=== PATIENT | female | born 1995 | race Caucasian/White ===

== ENCOUNTER 2017-08-24 07:15 | Inpatient (IN) | payer OTHER ==
[2017-08-24] MEDS: LACTATED RINGER'S 1000 ML IV (09:31)
[2017-08-24 09:50] LABS: HEMATOCRIT 30.2 % (36.0-47.0); HEMOGLOBIN 9.3 g/dl (12.0-16.0); MEAN CORPUSCULAR HEMOGLOBIN 25.8 pg (27.0-33.0); MEAN CORPUSCULAR HGB CONC 30.8 g/dl (32.0-36.5); MEAN CORPUSCULAR VOLUME 83.7 fl (80.0-96.0); PLATELET COUNT, AUTOMATED 200 10^3/uL (150-450); RED BLOOD COUNT 3.61 10^6/uL (4.00-5.40); RED CELL DISTRIBUTION WIDTH 14.9 % (11.5-14.5); WHITE BLOOD COUNT 11.5 10^3/uL (4.0-10.0)
[2017-08-24] MEDS ORDERED: miSOPROStol 25 MCG 1/4 TAB (S0191) As Ordered (09:53)
[2017-08-24] MEDS: miSOPROStol 25 MCG 1/4 TAB (S0191) PV (09:57)
[2017-08-24] MEDS ORDERED: BUTORPHANOL 2 MG/ML INJ (J0595) IV (10:30)
[2017-08-24] MEDS: LR 1,000 ML IV ×2 (10:33→17:18)
[2017-08-24 10:36] LABS: AMPHETAMINES URINE REFLEX NEGATIVE (NEGATIVE); BARBITURATES URINE REFLEX NEGATIVE (NEGATIVE); BENZODIAZEPINES URINE REFLEX NEGATIVE (NEGATIVE); CANNABINOIDS URINE REFLEX NEGATIVE (NEGATIVE); COCAINE METABOLITE URINE REFLE NEGATIVE (NEGATIVE); METHADONE URINE REFLEX NEGATIVE (NEGATIVE); OPIATES URINE REFLEX NEGATIVE (NEGATIVE); PHENCYCLIDINE URINE REFLEX NEGATIVE (NEGATIVE)
[2017-08-24] MEDS: miSOPROStol 25 MCG 1/4 TAB (S0191) PO (17:15)
[2017-08-24] MEDS ORDERED: FENTANYL 2MCG/ML ROPIVACAINE 0.2% IN 0.9% NACL 200ML IVBAG As Ordered (22:29)
[2017-08-25] MEDS: OXYTOCIN DRIP 30 UNITS in APPROPRIATE DILUENT 1 EA IV ×2 (00:05→13:23)
[2017-08-25] MEDS ORDERED: diphenhydrAMINE INJ 50MG/ML VIAL (J1200) IV (11:00)
[2017-08-25] MEDS ORDERED: LACTATED RINGER'S 1000 ML IV (11:00)
[2017-08-25] MEDS ORDERED: FENTANYL/ROPIVACAINE/NACL BAG 200 ML EPIDURAL (11:00)
[2017-08-25] MEDS ORDERED: ePHEDrine SULFATE 25 MG/5 ML(5MG/ML) SYRINGE IV (11:00)
[2017-08-25] MEDS ORDERED: EPIDURAL COMMENT XX (11:00)
[2017-08-25] MEDS ORDERED: REFRIGERATOR IV KEYS XX (11:00)
[2017-08-25] MEDS ORDERED: EPIDURAL/PCA KEYS XX (11:00)
[2017-08-25] MEDS ORDERED: NALOXONE INJ 0.4 MG/1 ML VIAL (J2310) IV (11:00)
[2017-08-25] MEDS: ONDANSETRON 4MG/2ML VIAL (J2405) IV (11:07)
[2017-08-25 12:05] LABS: CORD GAS ABE A -3.5; CORD GAS ABE V -2.6; CORD GAS HCO3 V 23.5 MEQ/L; CORD GAS O2 SAT A 20.2 %; CORD GAS O2 SAT V 59.2 %; CORD GAS PH A 7.245 UNITS; CORD GAS PH V 7.335 UNITS; CORD GAS PO2 A 13.5 mmHg; CORD GAS PO2 V 25.6 mmHg; CORD GAS SBC A 19.7 MEQ/L; CORD GAS SBC V 21.3 MEQ/L; CORD GAS TCO2 A 26.8 MEQ/L; CORD GAS TCO2 V 24.8 MEQ/L
[2017-08-25] MEDS ORDERED: ONDANSETRON 4MG/2ML VIAL (J2405) IV (13:30)
[2017-08-25] MEDS ORDERED: MOM 30ML SUSPENSION UDC PO (13:30)
[2017-08-25] MEDS ORDERED: FAMOTIDINE 20 MG TAB PO (13:30)
[2017-08-25] MEDS: miSOPROStol 200 MCG TAB (S0191) PR (13:30)
[2017-08-25] MEDS ORDERED: PROMETHAZINE 25 MG TAB PO (13:30)
[2017-08-25] MEDS: IBUPROFEN 800 MG TAB PO ×2 (15:05→23:27)
[2017-08-25 20:12] LABS: HEMATOCRIT 27.2 % (36.0-47.0); HEMOGLOBIN 8.4 g/dl (12.0-16.0); MEAN CORPUSCULAR HEMOGLOBIN 25.7 pg (27.0-33.0); MEAN CORPUSCULAR HGB CONC 30.9 g/dl (32.0-36.5); MEAN CORPUSCULAR VOLUME 83.2 fl (80.0-96.0); PLATELET COUNT, AUTOMATED 196 10^3/uL (150-450); RED BLOOD COUNT 3.27 10^6/uL (4.00-5.40); RED CELL DISTRIBUTION WIDTH 15.4 % (11.5-14.5); WHITE BLOOD COUNT 21.2 10^3/uL (4.0-10.0)
[2017-08-25] MEDS: DIBUCAINE 1% OINTMENT 30GM TOP (21:40)
[2017-08-25] MEDS: ACETAMINOPHEN 500 MG TAB PO (21:40)
[2017-08-25] MEDS: DOCUSATE SODIUM 100 MG CAP PO (21:40)
[2017-08-26] MEDS: DOCUSATE SODIUM 100 MG CAP PO ×2 (08:58→20:02)
[2017-08-26] MEDS: IBUPROFEN 800 MG TAB PO ×2 (08:58→20:02)
[2017-08-26] MEDS: PRENATAL VITAMINS CHEWABLE TABLET PO (08:58)
[2017-08-26 09:36] LABS: HEMATOCRIT 25.1 % (36.0-47.0); HEMOGLOBIN 7.8 g/dl (12.0-16.0); MEAN CORPUSCULAR HEMOGLOBIN 26.1 pg (27.0-33.0); MEAN CORPUSCULAR HGB CONC 31.1 g/dl (32.0-36.5); MEAN CORPUSCULAR VOLUME 83.9 fl (80.0-96.0); PLATELET COUNT, AUTOMATED 166 10^3/uL (150-450); RED BLOOD COUNT 2.99 10^6/uL (4.00-5.40); RED CELL DISTRIBUTION WIDTH 15.4 % (11.5-14.5); WHITE BLOOD COUNT 15.7 10^3/uL (4.0-10.0)
[2017-08-26] MEDS: ACETAMINOPHEN 500 MG TAB PO (16:07)
[2017-08-26] MEDS: DIBUCAINE 1% OINTMENT 30GM TOP (20:15)
[2017-08-26] MEDS: ANUSOL HC CREAM 30GM TOP (20:16)
[2017-08-27] MEDS: ACETAMINOPHEN 500 MG TAB PO (00:16)
[2017-08-27] MEDS: PRENATAL VITAMINS CHEWABLE TABLET PO (08:29)
[2017-08-27] MEDS: DOCUSATE SODIUM 100 MG CAP PO (08:29)
== END 2017-08-27 13:00 | disposition home or self-care (01) | DRG 775 ==
LOC: M LDI 07:15 → M OBS 08-25 15:36
PROVIDERS: Obstetrics & Gynecology
PROC: 10E0XZZ Delivery of Products of Conception, External Approach (ICD-10-PCS; principal; 2017-08-24)
PROC: 0DQR0ZZ Repair Anal Sphincter, Open Approach (ICD-10-PCS; 2017-08-24)
PROC: 3E0P7VZ Introduction of Hormone into Female Reproductive, Via Natural or Artificial Opening (ICD-10-PCS; 2017-08-24)
PROC: 0HQ9XZZ Repair Perineum Skin, External Approach (ICD-10-PCS; 2017-08-24)
DX: O48.0 Post-term pregnancy (principal); O70.20 Third degree perineal laceration during delivery, unspecified; Z37.0 Single live birth; Z3A.41 41 weeks gestation of pregnancy; E66.9 Obesity, unspecified; Z68.36 Body mass index [BMI] 36.0-36.9, adult; O99.214 Obesity complicating childbirth; Z88.1 Allergy status to other antibiotic agents; Z91.040 Latex allergy status; O69.82X0 Labor and delivery complicated by other cord entanglement, without compression, not applicable or unspecified; O36.63X0 Maternal care for excessive fetal growth, third trimester, not applicable or unspecified; O75.89 Other specified complications of labor and delivery; O70.0 First degree perineal laceration during delivery

== ENCOUNTER 2017-10-08 14:21 | Emergency (ER) | payer OTHER | END 2017-10-08 17:46 | disposition home or self-care (01) | LOC: M ED 14:21 | DX: F33.9 Major depressive disorder, recurrent, unspecified (principal); Z88.0 Allergy status to penicillin; Z91.040 Latex allergy status | CPT/HCPCS: 99284 ==

== ENCOUNTER 2018-09-03 13:11 | Outpatient (CLI) | payer OTHER ==
[2018-09-03] VITALS (8 sets, daily range): BP systolic 90–113; BP diastolic 51–70
[~2018-09-03] VITALS: Ht 165.1 cm; Wt 121.0 kg
[~2018-09-03 13:11] MED LIST: COLA100C5 PO; IBUP-1114 PO; MAPA500T2 PO; PEPC1TAB5 PO; PRENTAB9 PO; VITA100067 PO
[2018-09-03] MEDS ORDERED: LACTATED RINGER'S 1000 ML IV ONE (15:15)
--- NOTE | 2018-09-03 18:02 | REP ---
Clinical: Polyhydramnios for well being. Comparison: None available . Findings: Examination demonstrates a single live advanced in cephalic presentation. motion is identified by technologist. Placenta is noted right lateral and grade I without evidence for placenta previa or abruption. Amniotic fluid volume is elevated and consistent with given history of polyhydramnios. Cervix measures 4.0 cm in length and appears closed. No evidence for nuchal cord. Gestational age by LMP 35 weeks 4 days with ALVARO 10/04/2018 . Gestational age by current measurements 38 weeks 4 days with ALVARO 09/13/2018 . FHR equals 153 beats per minute. BPD 9.7 cm 39 weeks 5 days HC 35.0 cm 40 weeks 5 days AC 37.0 cm 40 weeks 6 days FL 7.0 cm 36 weeks 1 day HL 6.2 cm 35 weeks 6 days HC/AC ratio 0.95 Estimated weight 3887 grams ( greater than 97th percentile based on age by LMP ). Biophysical profile score: 8 Amniotic fluid index: 33.1 cm (7.8 - 24.9) Umbilical cord SD ratio: 2.24 (2.00 - 3.00). Impression: Single live advanced gestation in cephalic presentation. Biophysical profile score is normal. Polyhydramnios noted (ARI = 33.1) weight is greater than 97 percentile based on age by LMP Electronically Signed by Henry Martinez MD 09/03/2018 05:53 P
[2018-09-04] VITALS (8 sets, daily range): BP systolic 88–174; BP diastolic 50–110
[2018-09-04] MEDS: LR 1,000 ML IV SCH ×2 (03:47→05:54)
== END 2018-09-04 07:55 | disposition home or self-care (01) ==
LOC: M LDO 13:11
PROVIDERS: ATTEND Obstetrics & Gynecology
DX: O40.3XX0 Polyhydramnios, third trimester, not applicable or unspecified (principal); Z3A.35 35 weeks gestation of pregnancy
CPT/HCPCS: 59025; 76811; 76819; 76820; 87081; 96360; 96361; G0378; G0463

== ENCOUNTER 2018-09-07 11:11 | Inpatient (IN) | payer OTHER ==
[~2018-09-07] VITALS: Ht 165.1 cm; Wt 121.0 kg
[2018-09-07] VITALS (13 sets, daily range): BP systolic 89–134; BP diastolic 49–69
[2018-09-07] MEDS: PRENATAL VITAMINS CHEWABLE TABLET PO SCH (09:00)
[~2018-09-07 11:11] MED LIST changes: -MORPHINE 10 MG/ML 1ML VIAL (J2270) As Ordered ONE
[2018-09-07] MEDS ORDERED: LACTATED RINGER'S 1000 ML IV STA (11:39)
--- NOTE | 2018-09-07 12:07 | HPEPDOC ---
Obstetrical History & Physical General Date of Admission History of Present Illness 23 yo at 36+1 weeks by 6+5 week US, and 37+4 weeks by 17+6 week US (10 day difference from 6+5 week US, with guidelines recommending changing due date if ALVARO >10 day difference) presented to L&D with the complaint of regular, painful contractions. She denies any leakage of fluid. She endorses intermittent spotting. She endorses movement. complicated by polyhydramnios, lack of care, concern for macrosomia, anxiety, and obesity. She has had limited care due to a lack of transportation. Chief Complaint: Contractions, pre-term Information Provided By: Patient Age: 23 : 4 Term: 1 Pre-term: 0 Abortions: 2 Livin Care Care: Limited Care Dating Final EDC: Oct 04, 2018 (6+5 week US set ALVARO of [id number]) Final EDC for Daily Update: Oct 04, 2018 Final EDC by: 1st trimester (US) Antepartum Course Diagnos(e)s Concern for macrosomia polyhydramnios obesity anxiety limited care Past Medical History Past Obstetrical History : Past Obstetrical History: Multigravida Type of Delivery: Spontaneous Vaginal Del. (Pelvis proven to 9lbs 14oz) OPERATING ROOM RN History: No pertinent history Past Medical History Medical History Obesity anxiety asthma Surgical History: Denies/None Family History Significant Family History: No pertinent family hx Family History Noncontributory Social History Marital Status: Family situation: Spouse/partner home Psychosocial History: Anxiety, Depression * Smoker: non-smoker Alcohol: Denies Drugs: denies Imunizations Tdap status: needs Influenza Status: current Allergies Coded Allergies: Amoxicillin (Verified Allergy, Severe, 08/24/17) REDDNESS AND SWELLING OF FACE Latex (Verified Allergy, Severe, 08/24/17) RASH Medications Scheduled Multivitamins/ ( 27-0.8 mg) 1 Tab Tab, 1 TAB PO DAILY Physical Examination Physical Examination GENERAL: Alert and oriented times three. ABDOMEN: Gravid and non-tender to touch. FETUS: Is vertex (VTX) by sterile vaginal examination (SVE) EXTREMITIES: No edema. Laboratory Data Urine Culture: No Growth Pertinent Laboratoy Data Blood Type: O+ RBC Antibody Screen: Negative HIV: Negative Hepatitis B: Negative Hepatitis C: Unknown Rapid Plasma Reagin: Nonreactive Rubella: Immune Varicella: Immune Chlamydia/Gonorrhea: Negative Group B Streptococcus: Unknown Quad Screen Test: Unknown Cystic Fibrosis: Unknown Glucose Tolerance Test: 133 Anatomy Ultrasound Placenta Location: Anterior (Concern for macrosomia and polyhydramnios on last US) Normal Anatomy: Yes Placenta Previa: No Other Ultrasounds 03Sep2018 --> polyhydramnios with ARI 33cm, and concern for macrosomia with EFW in 97th percentile Steroid Therapy Steroid Therapy: No Vaginal Examination Dilation: 5 cm Effacement: 80% Station: -1 Cervical Consistency: Soft Cervical Position: Anterior Presentation: Cephalic presentation Position: Vertex (occiput) Assessment Heart Rate (FHR): 150 Variability: Moderate Accelerations: Positive Decelerations: Variable Tocometer Contractions: Yes Frequency: irregular Duration: greater than 60 seconds Strength: palpated as moderate Assessment/Plan Assessment 23 yo at 36+1 weeks gestation by 6+5 week US presented in active labor. Plan There has been some confusion regarding her due date, but her 6+5 week scan is the most accurate. She had a 10 day difference US at 17+6 weeks, and guidelines report NOT changing the due date unless the difference is GREATER than 10 days at that gestational age. She had an US at 22+6 weeks which resulted in a 12 day difference from her due date. At this gestational age, it is NOT recommended to change the due date unless there is a 14 day difference from her prior due date. She had a GBS swab performed at her [facility] L&D visit on 03Sep2018 which was negative. She will NOT require GBS prophylaxis, even though she is . Will expectantly manage labor at this time. Apply IV fluids. Epidural when and if patient desires. Anticipate . DO GHAZALA Quezada CHRISTOPHER J. DO Sep 07, 2018 12:07
[2018-09-07] MEDS ORDERED: MORPHINE 10 MG/ML 1ML VIAL (J2270) IV ONE ×2 (12:30→13:00)
[2018-09-07] MEDS ORDERED: OXYTOCIN DRIP 30 UNITS in APPROPRIATE DILUENT 1 EA IV SCH (12:46)
[2018-09-07] MEDS ORDERED: ONDANSETRON 4MG/2ML VIAL (J2405) IV PRN (13:00)
[2018-09-07] MEDS ORDERED: ACETAMINOPHEN 500 MG TAB PO PRN (13:00)
[2018-09-07] MEDS ORDERED: LIDOCAINE 1% MDV 20ML VIAL SC ONE (13:00)
[2018-09-07] MEDS ORDERED: DOCUSATE SODIUM 100 MG CAP PO PRN ×2 (13:00→16:30)
[2018-09-07] MEDS ORDERED: DIBUCAINE 1% OINTMENT 30GM TOP PRN (13:00)
[2018-09-07] MEDS ORDERED: IBUPROFEN 800 MG TAB PO PRN (13:00)
[2018-09-07] MEDS ORDERED: RHOGAM 300 MCG (1500 IU) INJ (J2790) IM SCH ×2 (13:00→16:30)
[2018-09-07] MEDS ORDERED: MEASLES,MUMPS,RUBELLA VACCINE INJ (MMR-II) (90707) SC SCH (13:00)
[2018-09-07 13:20] LABS: CORD GAS ABE A -5.4; CORD GAS HCO3 A 20.3 MEQ/L; CORD GAS O2 SAT A 69.2 %; CORD GAS PCO2 A 40.3 mmHg; CORD GAS PH A 7.32 UNITS; CORD GAS PO2 A 30.8 mmHg; CORD GAS SBC A 19.4 MEQ/L; CORD GAS TCO2 A 21.5 MEQ/L
[2018-09-07 13:22] LABS: CORD GAS ABE V -2.6; CORD GAS HCO3 V 23.6 MEQ/L; CORD GAS O2 SAT V 65.9 %; CORD GAS PH V 7.328 UNITS; CORD GAS PO2 V 28.4 mmHg; CORD GAS SBC V 21.5 MEQ/L
[2018-09-07 15:25] LABS: ALT/SGPT 16 U/L (12-78); BILIRUBIN,TOTAL 0.4 MG/DL (0.2-1.0); CREATININE FOR GFR 0.39 MG/DL (0.55-1.30); GLOMERULAR FILTRATION RATE > 60.0 (>60); LDH LACTATE DEHYDROGENASE 317 U/L (84-246); URIC ACID 2.4 MG/DL (2.6-6.0)
[2018-09-07 15:35] LABS: BASO % 0.1 % (0.0-1.0); EOS % 0.3 % (0.0-3.0); HEMATOCRIT 33.5 % (36.0-47.0); MEAN CORPUSCULAR HEMOGLOBIN 25.1 pg (27.0-33.0); MEAN CORPUSCULAR HGB CONC 29.9 g/dl (32.0-36.5); MEAN CORPUSCULAR VOLUME 84.2 fl (80.0-96.0); MONO # 1.4 10^3/uL (0.0-0.8); MONO % 8.5 % (0.0-5.0); NEUTROPHILS # 13.5 10^3/uL (1.8-7.7); NEUTROPHILS % 84.3 % (36.0-66.0); PLATELET COUNT, AUTOMATED 154 10^3/uL (150-450); RED BLOOD COUNT 3.98 10^6/uL (4.00-5.40)
[2018-09-07] MEDS ORDERED: DILUENT IV SCH (16:20)
[2018-09-07] MEDS ORDERED: OXYTOCIN DRIP IV SCH (16:20)
[2018-09-07] MEDS ORDERED: METHYLERGONOVINE MALEATE 0.2 MG TAB PO PRN (16:30)
[2018-09-07] MEDS ORDERED: OXYTOCIN INJ 10 UNITS/ML VIAL (J2590) IV ONE (17:30)
[2018-09-07] MEDS ORDERED: ceFAZolin SOD 1 GM in D5W MINI-BAG PLUS 50 ML IV SCH (19:45)
[2018-09-08 06:05] VITALS: BP 110/62
--- NOTE | 2018-09-08 06:11 | DNPDOC ---
[facility] Delivery Note Delivery Note DATE OF DELIVERY: 07Sep2018 at ~1215 PREDELIVERY DIAGNOSIS: 36+1 weeks gestation and labor POST DELIVERY DIAGNOSIS: Delivered. PROCEDURE: Spontaneous vaginal delivery. WARRANT SERVER: Dr. Stoner ANESTHESIA: None. ESTIMATED BLOOD LOSS: 500 mL. FINDINGS: pending weight, female infant, Scores pending, nuchal cord times X1. DELIVERY SUMMARY: Maci was admitted to L&D for active labor at 36+1 weeks gestation. She progressed rapidly. I was called to the room because she felt a strong urge to push that could not be controlled. Exam revealed cervix C/C/+2 with a bulging bag of water. AROM was performed productive of bloody fluid and she was then prepped for delivery. With excellent pushing effort her delivered. Presentation was JAM with with restitution to ROT. The left anterior shoulder delivered with gentle guidance followed easily by the remainder of the body. There was a loose nuchal cord that was delivered through and reduced manually. The was dried and stimulated on the field. The cried on the field and was then placed on the maternal abdomen under the care of the awaiting baby nurse team. The three vessel cord was then clamped and cut by the patient. I then obtained cord gases. There was bleeding and passage of clots from the vagina. 3rd stage was then completed with gentle traction on the cord. The placenta was ragged in appearance but was intact. Appearance was consistent with an abruption. The uterine fundus was firmed with massage and pitocin was administered IV bolus. Inspection of the vagina and perineum revealed a midline 2nd degree laceration. IV morphine and SQ lidocaine was then administered for analgesia, and the laceration was repaired in the usual fashion with 3-0 vicryl suture. There was excellent cosmesis and hemostasis. The placenta was sent to pathology for review. Sponge, instrument, and needle counts were correct x2. Mother stable when I left the room. DO GHAZALA Quezada CHRISTOPHER J. DO Sep 08, 2018 06:11
--- NOTE | 2018-09-08 06:58 | IPNPDOC ---
Progress Note Date of Service: Sep 08, 2018 Progress Note SUBJECT: Maci is a 23-year-old 2 now Para 2 who is status post uncomplicated spontaneous vaginal delivery at 36-1/7 weeks' gestation at approximately 1215 on 08Sep2018, doing well day # 1. She has been ambulating, voiding spontaneously without issue and tolerating regular diet. Breast feeding without issue. Reports lochia is like a normal period. Patient is ambulating well. Denies any pain. Voiding without difficulty. OBJECTIVE: VITAL SIGNS: Within normal limits, afebrile. Alert and oriented times three. Breath sounds clear to auscultation. Heart rate: Regular rate and rhythm, no murmurs, rubs or gallops. Abdomen: Fundus firm at U-2. Soft, NTTP. Minimal lochia. ASSESSMENT: Maci is a 23-year-old 2 now Para 2 who is status post uncomplicated spontaneous vaginal delivery at 36-1/7 weeks' gestation at approximately 1215 on 08Sep2018, doing well day # 1. Vitals within normal limits, afebrile, hemodynamically stable with no evidence of infection. PLAN: 1. Continue routine care. Anticipate dc home tomorrow. Pending social work consultation due to depression history. may require further attention as well based on peds recommendations. 2. Tylenol and Motrin for pain. 3. Encourage breast feeding and ambulation. 4. Routine PP visit in 6 weeks in clinic. 5. Discussed return precautions at length. VS, I&O, 24H, Fishbone Vital Signs/I&O Vital Signs Date Time Temp Pulse Resp B/P (MAP) Pulse Ox O2 Delivery O2 Flow Rate FiO2 09/08/18 06:05 97.9 86 18 110/62 (78) 09/07/18 18:07 95 Room Air I&O- Last 24 Hours up to 6 AM 09/08/18 06:00 Intake Total 2000 ml Output Total 1700 ml Balance 300 ml Laboratory Data 24H LABS Laboratory Tests 2 09/07/18 12:30: Immature Granulocyte % (Auto) 0.8, White Blood Count 16.0H, Red Blood Count 3.98L, Hemoglobin 10.0L, Hematocrit 33.5L, Mean Corpuscular Volume 84.2, Mean Corpuscular Hemoglobin 25.1L, Mean Corpuscular Hemoglobin Concent 29.9L, Red Cell Distribution Width 17.8H, Platelet Count 154, Neutrophils (%) (Auto) 84.3H, Lymphocytes (%) (Auto) 6.0L, Monocytes (%) (Auto) 8.5H, Eosinophils (%) (Auto) 0.3, Basophils (%) (Auto) 0.1, Neutrophils # (Auto) 13.5H, Lymphocytes # (Auto) 1.0L, Monocytes # (Auto) 1.4H, Eosinophils # (Auto) 0.0, Basophils # (Auto) 0.0, Nucleated Red Blood Cells % (auto) 0.0, Glomerular Filtration Rate > 60.0, Creatinine 0.39L, Aspartate Amino Transf (AST/SGOT) 27, Alanine Aminotransferase (ALT/SGPT) 16, Lactate Dehydrogenase 317H, Total Bilirubin 0.4, Uric Acid 2.4L 09/07/18 13:14: Cord Arterial Blood pH 7.320, Cord Arterial Blood PCO2 40.3, Cord Arterial Blood PO2 30.8, Cord Arterial Blood HCO3 20.3, Cord Arterial Blood Total CO2 21.5, Cord Arterial Blood Base Excess -5.4, Cord Arterial Base Excess (Standard 19.4, Cord Arterial Bld Oxygen Saturation 69.2, Cord Venous Blood pH 7.328, Cord Venous Blood PCO2 46.0, Cord Venous Blood PO2 28.4, Cord Venous Blood HCO3 23.6, Cord Venous Blood Total CO2 25.0, Cord Venous Base Excess (Actual) -2.6, Cord Venous Base Excess (Standard) 21.5, Cord Venous Blood Oxygen Saturation 65.9 09/07/18 15:09: Serology Scanned Report Hepatitis B Testing CBC/BMP Laboratory Tests 09/07/18 12:30 Red Blood Count 3.98 L, Mean Corpuscular Volume 84.2, Mean Corpuscular Hemoglobin 25.1 L, Mean Corpuscular Hemoglobin Concent 29.9 L, Red Cell Distribu tion Width 17.8 H, Neutrophils (%) (Auto) 84.3 H, Lymphocytes (%) (Auto) 6.0 L, Monocytes (%) (Auto) 8.5 H, Eosinophils (%) (Auto) 0.3, Basophils (%) (Auto) 0.1, Neutrophils # (Auto) 13.5 H, Lymphocytes # (Auto) 1.0 L, Monocytes # (Auto) 1.4 H, Eosinophils # (Auto) 0.0, Basophils # (Auto) 0.0, Aspartate Amino Transf (AST/SGOT) 27, Alanine Aminotransferase (ALT/SGPT) 16, Lactate Dehydrogenase 317 H, Total Bilirubin 0.4, Uric Acid 2.4 L JOSE VIVAR DO Sep 08, 2018 06:57
[2018-09-08] MEDS: PRENATAL VITAMINS CHEWABLE TABLET PO SCH (09:13)
[2018-09-08 18:00] VITALS: BP 115/61
[2018-09-09 06:33] VITALS: BP 97/58
--- NOTE | 2018-09-09 07:59 | DS.PDOC ---
Discharge Summary General Date of Admission Sep 07, 2018 at 12:00 Date of Discharge Discharge Summary ADMITTING DIAGNOSES: Active labor DISCHARGE DIAGNOSES: , partial abruption HOSPITAL COURSE: Admitted and delivery uncomplicated, . course uncomplicated. DISCHARGE MEDICATIONS: Motrin, Lanolin DISCHARGE INSTRUCTIONS: Nothing in the vagina for 6 weeks. F/U in OBGYN clinic in 6-8 weeks. Sessions Vital Signs/I&Os Vital Signs Date Time Temp Pulse Resp B/P (MAP) Pulse Ox O2 Delivery O2 Flow Rate FiO2 09/09/18 06:33 98.0 80 16 97/58 (71) 09/08/18 18:00 100 09/07/18 18:07 Room Air Discharge Medications Scheduled Multivitamins/ ( 27-0.8 mg) 1 Tab Tab, 1 TAB PO DAILY, (Reported) Allergies Coded Allergies: Amoxicillin (Verified Allergy, Severe, 08/24/17) REDDNESS AND SWELLING OF FACE Latex (Verified Allergy, Severe, 08/24/17) RASH SESSIONS,HARRY Archer MD Sep 09, 2018 07:59
--- NOTE | 2018-09-09 08:01 | IPNPDOC ---
Text Note Date of Service The patient was seen on 09/09/18. NOTE PPD2 States feeling well, pain controlled with prescribed meds. Baby bonding and feeding well. No heavy VB. Lochia slowing. Ambulating and voiding well. Tolerating PO without issues. VSSAF NAD A&O RRR CTAB LE no C/C/E Ut at U-2, firm a/p: Doing well. Cont routine care. D/C today. Saw PFS yest. Sessions VS,Bob, I+O VSBob, I+O Vital Signs Date Time Temp Pulse Resp B/P (MAP) Pulse Ox O2 Delivery O2 Flow Rate FiO2 09/09/18 06:33 98.0 80 16 97/58 (71) 09/08/18 18:00 100 09/07/18 18:07 Room Air SESSIONS,HARRY Archer MD Sep 09, 2018 08:00
[2018-09-09] MEDS: PRENATAL VITAMINS CHEWABLE TABLET PO SCH (09:10)
[2018-09-09] MEDS ORDERED: IBUP-1114 PO (10:43)
[2018-09-09] MEDS ORDERED: COLA100C5 PO (10:43)
[2018-09-09] MEDS ORDERED: MAPA500T2 PO (10:43)
== END 2018-09-09 13:00 | disposition home or self-care (01) | DRG 805 ==
LOC: M LDO 11:11 → M LDI 12:00 → EDSTATUS 13:52 → M LDI 13:58 → M OBS 16:50
PROVIDERS: ADMIT Obstetrics & Gynecology; ATTEND Obstetrics & Gynecology
PROC: 10E0XZZ Delivery of Products of Conception, External Approach (ICD-10-PCS; principal; 2018-09-07)
PROC: 0KQM0ZZ Repair Perineum Muscle, Open Approach (ICD-10-PCS; 2018-09-07)
DX: O60.14X0 Preterm labor third trimester with preterm delivery third trimester, not applicable or unspecified (principal); Z37.0 Single live birth; O45.93 Premature separation of placenta, unspecified, third trimester; O40.9XX0 Polyhydramnios, unspecified trimester, not applicable or unspecified; Z3A.36 36 weeks gestation of pregnancy; Z91.040 Latex allergy status; Z88.0 Allergy status to penicillin; O09.30 Supervision of pregnancy with insufficient antenatal care, unspecified trimester; E66.9 Obesity, unspecified; O99.214 Obesity complicating childbirth; O70.1 Second degree perineal laceration during delivery

== ENCOUNTER → 2018-09-07 | Outpatient (CLI) | payer OTHER ==
[~2018-09-07] MED LIST changes: +MORPHINE 10 MG/ML 1ML VIAL (J2270) As Ordered ONE
--- NOTE | 2018-09-07 13:51 | DNPDOC ---
[facility] Delivery Note Delivery Note DATE OF DELIVERY: 07Sep2018 at ~1215 PREDELIVERY DIAGNOSIS: 36+1 weeks gestation and labor POST DELIVERY DIAGNOSIS: Delivered. PROCEDURE: Spontaneous vaginal delivery. SHELL MOLD BONDING MACHINE OPERATOR: Dr. Stoner ANESTHESIA: None. ESTIMATED BLOOD LOSS: 500 mL. FINDINGS: pending weight, female infant, Scores pending, nuchal cord times X1. DELIVERY SUMMARY: Maci was admitted to L&D for active labor at 36+1 weeks gestation. She progressed rapidly. I was called to the room because she felt a strong urge to push that could not be controlled. Exam revealed cervix C/C/+2 with a bulging bag of water. AROM was performed productive of bloody fluid and she was then prepped for delivery. With excellent pushing effort her delivered. Presentation was JAM with with restitution to ROT. The left anterior shoulder delivered with gentle guidance followed easily by the remainder of the body. There was a loose nuchal cord that was delivered through and reduced manually. The was dried and stimulated on the field. The cried on the field and was then placed on the maternal abdomen under the care of the awaiting baby nurse team. The three vessel cord was then clamped and cut by the patient. I then obtained cord gases. There was bleeding and passage of clots from the vagina. 3rd stage was then completed with gentle traction on the cord. The placenta was ragged in appearance but was intact. Appearance was consistent with an abruption. The uterine fundus was firmed with massage and pitocin was administered IV bolus. Inspection of the vagina and perineum revealed a midline 2nd degree laceration. IV morphine and SQ lidocaine was then administered for analgesia, and the laceration was repaired in the usual fashion with 3-0 vicryl suture. There was excellent cosmesis and hemostasis. The placenta was sent to pathology for review. Sponge, instrument, and needle counts were correct x2. Mother stable when I left the room. DO GHAZALA Quezada CHRISTOPHER J. DO Sep 07, 2018 13:51
--- NOTE | 2018-09-07 13:53 | HPEPDOC ---
Obstetrical History & Physical General Date of Admission Sep 07, 2018 at 12:04 Past Medical History Allergies Coded Allergies: Amoxicillin (Verified Allergy, Severe, 08/24/17) REDDNESS AND SWELLING OF FACE Latex (Verified Allergy, Severe, 08/24/17) RASH Medications Scheduled Multivitamins/ ( 27-0.8 mg) 1 Tab Tab, 1 TAB PO DAILY Physical Examination Physical Examination GENERAL: Alert and oriented times three. BREAST: . ABDOMEN: Gravid and non-tender to touch. FETUS: Is vertex (VTX) by sterile vaginal examination (SVE), fetus is vertex (VTX) by Blas. HEART RATE: Regular rate and rhythm. LUNGS: Clear to auscultation (CTA). EXTREMITIES: No edema. No clonus. Deep tendon reflexes (DTRs) + . Assessment/Plan Plan Obstetrical History & Physical Obstetrical History & Physical General Date of Admission History of Present Illness 23 yo at 36+1 weeks by 6+5 week US, and 37+4 weeks by 17+6 week US (10 day difference from 6+5 week US, with guidelines recommending changing due date if ALVARO >10 day difference) presented to L&D with the complaint of regular, painful contractions. She denies any leakage of fluid. She endorses intermittent spotting. She endorses movement. complicated by polyhydramnios, lack of care, concern for macrosomia, anxiety, and obesity. She has had limited care due to a lack of transportation. Chief Complaint: Contractions, pre-term Information Provided By: Patient Age: 23 : 4 Term: 1 Pre-term: 0 Abortions: 2 Livin Care Care: Limited Care Dating Final EDC: Oct 04, 2018 (6+5 week US set ALVARO of [id number]) Final EDC for Daily Update: Oct 04, 2018 Final EDC by: 1st trimester (US) Antepartum Course Diagnos(e)s Concern for macrosomia polyhydramnios obesity anxiety limited care Past Medical History Past Medical History Past Obstetrical History : Past Obstetrical History: Multigravida Type of Delivery: Spontaneous Vaginal Del. (Pelvis proven to 9lbs 14oz) CHIEF DIETITIAN History: No pertinent history Past Medical History Medical History Obesity anxiety asthma Surgical History: Denies/None Family History Significant Family History: No pertinent family hx Family History Noncontributory Social History Marital Status: Family situation: Spouse/partner home Psychosocial History: Anxiety, Depression * Smoker: non-smoker Alcohol: Denies Drugs: denies Imunizations Tdap status: needs Influenza Status: current Allergies Coded Allergies: Amoxicillin (Verified Allergy, Severe, 08/24/17) REDDNESS AND SWELLING OF FACE Latex (Verified Allergy, Severe, 08/24/17) RASH Medications Scheduled Multivitamins/ ( 27-0.8 mg) 1 Tab Tab, 1 TAB PO DAILY Physical Examination Physical Examination Physical Examination GENERAL: Alert and oriented times three. ABDOMEN: Gravid and non-tender to touch. FETUS: Is vertex (VTX) by sterile vaginal examination (SVE) EXTREMITIES: No edema. Laboratory Data Urine Culture: No Growth Pertinent Laboratoy Data Blood Type: O+ RBC Antibody Screen: Negative HIV: Negative Hepatitis B: Negative Hepatitis C: Unknown Rapid Plasma Reagin: Nonreactive Rubella: Immune Varicella: Immune Chlamydia/Gonorrhea: Negative Group B Streptococcus: Unknown Quad Screen Test: Unknown Cystic Fibrosis: Unknown Glucose Tolerance Test: 133 Anatomy Ultrasound Placenta Location: Anterior (Concern for macrosomia and polyhydramnios on last US) Normal Anatomy: Yes Placenta Previa: No Other Ultrasounds 03Sep2018 --> polyhydramnios with ARI 33cm, and concern for macrosomia with EFW in 97th percentile Steroid Therapy Steroid Therapy: No Vaginal Examination Dilation: 5 cm Effacement: 80% Station: -1 Cervical Consistency: Soft Cervical Position: Anterior Presentation: Cephalic presentation Position: Vertex (occiput) Assessment Heart Rate (FHR): 150 Variability: Moderate Accelerations: Positive Decelerations: Variable Tocometer Contractions: Yes Frequency: irregular Duration: greater than 60 seconds Strength: palpated as moderate Assessment/Plan Assessment/Plan Assessment 23 yo at 36+1 weeks gestation by 6+5 week US presented in active labor. Plan There has been some confusion regarding her due date, but her 6+5 week scan is the most accurate. She had a 10 day difference US at 17+6 weeks, and guidelines report NOT changing the due date unless the difference is GREATER than 10 days at that gestational age. She had an US at 22+6 weeks which resulted in a 12 day difference from her due date. At this gestational age, it is NOT recommended to change the due date unless there is a 14 day difference from her prior due date. She had a GBS swab performed at her [facility] L&D visit on 03Sep2018 which was negative. She will NOT require GBS prophylaxis, even though she is . Will expectantly manage labor at this time. Apply IV fluids. Epidural when and if patient desires. Anticipate . DO GHAZALA Quezada CHRISTOPHER J. DO Sep 07, 2018 12:07 JOSE VIVAR DO Sep 07, 2018 13:53
== END ==
LOC: M LDO 08:00 → UNDOADMIN 12:04 → M LDI 12:04
PROVIDERS: ATTEND Obstetrics & Gynecology
DX: O26.893 Other specified pregnancy related conditions, third trimester (principal); Z53.9 Procedure and treatment not carried out, unspecified reason